=== PATIENT | female | born 1985 | race Two or more races ===

== ENCOUNTER 2022-11-17 00:36 | Day surgery (SDC) | payer OTHER, SELFPAY ==
[2022-11-10 14:19] VITALS: BMI 29.3
--- NOTE | 2022-11-10 14:52 | PC.NURSE ---
Report to the Outpatient Waiting Room, entrance under the green pavilion located off [facility], at time _0600 on date _11/17/22 . Planned Procedure Time: _0730 . Time changes happen often and if your time is changed the preop area will call you the afternoon before. - You and your visitor will be asked to self-screen and do not enter if you have any COVID symptoms. - A mask is optional within the hospital at this time. Patients may have clear liquids (water, carbonated beverages, clear teas, apple juice) until 3 hours prior to surgery with a maximum of 20 ounces. - No food from midnight until time of surgery - Infants may have breast milk until 4 hours before surgery, formula 6 hours prior to surgery. - Children will be allowed to drink immediately following surgery. If applicable, please bring a bottle or sippy cup to assist with drinking. Juice, water, soda, and popsicles are readily available. For infants on formula, please bring formula the day of surgery. Pacifiers are allowed. Take the following medications with a SIP of water the morning of surgery: _NONE DO NOT STOP ANY OF YOUR OTHER PRESCRIPTION MEDICATIONS PRIOR TO SURGERY ?EXCEPT THE FOLLOWING Medications to discontinue per physician NONE Date to take last dose___NONE Please no make-up, nail japanese, hairspray, perfume, deodorant, or body powder the day of surgery. No jewelry (including any body piercings) or valuables the day of surgery, leave them at home. Please take a shower or bath the night before, or the morning of, surgery with an antibacterial soap. Wear comfortable, loose fitting clothing. Children are encouraged to wear pajamas. - Jewelry must be removed prior to entering the operating room. Rings and piercings that are not removed may be cut off. - The hospital will not accept responsibility for valuables. - Please leave all valuables, including medications, at home the day of surgery. If you are going home after surgery, a licensed charter bus driver must drive you home. - NO public transportation without another adult if you receive anesthesia. - We recommend that an adult stay with you for 24 hours following discharge. - We also recommend that you do not drive, make important decision, drink alcoholic beverages, or take any drugs that were not prescribed by your health care provider for at least 24 hours after your discharge time. For Pediatric surgeries, we recommend two adults accompany the child home. Follow any additional instructions given to you from your surgeon. If you or anyone in your household have experienced Covid symptoms in the past week, please notify your surgeon or the nurse liaison at the phone number below for possible testing. Telephone instructions given to _SAM and asked if any additional questions and then verbalized understanding. Patient advised to call surgeon office or pre surgery nurse liaison [phone] if any additional questions.
--- NOTE | 2022-11-16 14:17 | P.PNAN_ITS ---
Anes - Initial Pre Proc Eval Procedure: Operation Date: 11/17/22 07:30 Proposed Procedures p Abdominoplasty with Liposuction - Junior Vaca MD Date/Time: 11/16/22 14:17 Surgeon: Junior Vaca MD Pre Op Diagnosis: skin laxity, localized adiposity Patient Data Age: 36 Gender: F Height: 1.65 m Weight: 80 kg Allergies Allergy/AdvReac Type Severity Reaction Status Date / Time adhesive AdvReac Intermediate Redness of Verified 11/10/22 14:58 Skin Home Medications Medication Instructions Recorded Confirmed Type No Home Medications 11/10/22 11/10/22 History Patient hx anesthesia problems: post op nausea/vomiting Family hx anesthesia problems: none Results Review: All pre-operative results and documents have been reviewed as part of the pre- operative evaluation. [facility] Past Medical History Medical History (Updated 11/16/22 @ 14:18 by Varun Kim DO) Factor V Leiden Pelvic adhesions PONV (postoperative nausea and vomiting) Surgical History Surgical History (Updated 11/16/22 @ 14:18 by Varun Kim DO) History of tubal ligation Social History Social History Smoking status: Never smoker Alcohol intake: never Substance use: never Substance use type: does not use Living arrangements: with family Spiritual care concerns: No Anes - Eval Final PreProcedure Day of Procedure 11/16/22 14:17 Patient weight: overweight Heart: regular rate and rhythm Lungs: clear to auscultation Airway: Mallampati scale class II Neurological: alert and oriented Last oral intake: >/= 8 hours ASA classification: II Emergent: no Anesthetic plan: proceed Anesthesia type and monitoring: general ETT and standard monitoring Results Review: All pre-operative results and documents have been reviewed as part of the pre- operative evaluation. Informed Consent: The patient's anesthetic plan and its attendant risks and benefits were discussed with the patient/family/POA. Questions were solicited and answers provided to the satisfaction of the patient/family/POA.
[2022-11-17] VITALS (11 sets, daily range): BP systolic 102–138; BP diastolic 59–80; PULSE 71–117; RESP 13–19; TEMP 36.7–37.6; O2SAT 98–100
[2022-11-17 06:50] LABS: Urine Cotinine NEGATIVE
--- NOTE | 2022-11-17 06:59 | WPDHPUPDATE1 ---
History and Physical Update Update Date/Time: 11/17/22 06:59 History and Physical has been reviewed, including an updated exam of the patient. There are NO changes in the patient's condition. Risks, benefits, and alternatives have been discussed and questions answered. Patient agrees to proceed with procedure.
--- NOTE | 2022-11-17 07:00 | W.PM.PROC2 ---
Procedure Note - Detailed Date of Procedure 11/17/22 Pre-op Diagnosis skin laxity, localized adiposity Post-op Diagnosis Same Procedure Performed Progressive tension abdominoplasty with suction lipectomy Surgeon Junior Vaca MD Anesthesia General Findings Tissue removed: 2492 grams Lipoaspirate: 3,000 cc Description of Procedure They are here today for abdominoplasty. Previously and again today the risks, benefits, alternatives were discussed in extensive detail. I wanted them to be very realistic about the risks involved as well as expectations. We discussed aftercare and what to monitor for. I was very upfront about the risks of wound breakdown leading to loss of skin, open wounds, and need for additional procedures with permanent abdominal deformity. We discussed DVT/PE risks and management. Made sure answered all of their questions to their satisfaction today and consent was obtained. They were marked in the preoperative holding area with their verification. The patient was taken to the operating room placed supine on the operating table. Anesthesia was provided by anesthesiology. A Mendoza catheter was started. They were prepped and draped in a standard sterile fashion. A surgical time-out was taken. I placed the patient in a flexed position to verify the upper and lower markings would reach. I then placed supine. A thorough abdominal examination was completed. Stab incisions were made and tumescent solution infiltrated. Once adequate time was allowed for hemostasis a 5mm basket cannula and 3mm canula was utilized to complete suction lipectomy based on S.A.F.E. technique in multiple planes and passes. There were turned to bilateral lateral decubitus position with care taken to protect them for injury during this process. Suction lipectomy continued to result based on pre-operative planning, intra-operative observation, and rolling pinch test which were in full agreement. A 10 blade was used to make the upper incision. I continued dissection down to the level of fascia. Elevated just what was necessary for repair of the diastasis. I then again flexed the bed to verify the upper skin flap would reach the lower markings without tension. Once verified I placed her supine once again and a 10 blade used to make the lower incision. I elevated up to level the umbilicus and left the umbilicus intact on a well-vascularized stalk. The intervening tissue was removed. A 2 mm blunt cannula with 0.5% bupivicaine was injected deep to the fascia bilaterally. I plicated the diastasis recti using 0 PDO stratafix barbed suture. This was in 2 separate layers using 2 separate sutures as well. I repaired around the umbilicus leaving plenty of room for well-vascularized stalk of the umbilicus with 2-0 PDS. I also repaired lateral to the rectus using two layers of 0 PDO stratafix. The patient was flexed and starting from superior to inferior began plication using 2-0 Vicryl to obliterate all space in a standard progressive tension fashion. At the umbilicus I marked out the location of the skin and inset this with 3-0 Monocryl and 4-0 Vicryl. I continued the remainder of the plication using 2-0 Vicryl until I reached my lower planned scar line. I trimmed any excess skin of the upper flap making sure this was a tension-free closure. I then approximated using a 3 point suture with 2-0 Vicryl followed by 3-0 stratafix ,running subcuticular 4-0 Monocryl, and tissue glue. Fluffs and an abdominal binder were placed. The patient was transferred to the bed in a flexed position. Awoken and taken to the PACU without difficulty. All instrument and sponge counts were correct at the end of the case. Estimated Blood Loss 75 Drains No Packing No Pathology None sent Complications No immediate complications Condition Stable Disposition PACU
[2022-11-17] MEDS: LACTATED RINGERS 1,000 ML 30 ML IV CONT ×2 (07:30→12:07)
[2022-11-17] MEDS: SCOPOLAMINE 1.5 MG PATCH TRANSDERM (07:30)
[2022-11-17] MEDS: TRANEXAMIC ACID 1,000MG/ISO100 1,000 MG/100 ML BAG 200 MG IVPB (07:30)
[2022-11-17] MEDS: ceFAZolin 2 GM/D5W 50 ML 2 GM/50 ML BAG IVPB (07:45)
[2022-11-17] MEDS: LACTATED RINGERS IRRIG 1,000 ML, LIDOCAINE HCL 1% LOCAL INJ 50 ML, EPINEPHrine HCL INJ ... INFILTRATE ×3 (08:19→09:47)
[2022-11-17] MEDS: BUPIVACAINE/EPINEPHRINE 0.5% 50 ML VIAL 60 ML INFILTRATE (08:20)
[2022-11-17] MEDS: fentaNYL CITRATE INJ (*CRX) 100 MCG/2 ML VIAL 25 MCG IV PUSH (12:51)
[2022-11-17] MEDS: LACTATED RINGERS 1,000 ML 125 ML IV CONT (13:35)
[2022-11-17] MEDS: carisoprodoL (*CRX) 350 MG TABLET PO ×2 (14:15→21:14)
[2022-11-17] MEDS: KETOROLAC 10 MG TABLET PO ×2 (14:32→21:14)
[2022-11-17] MEDS: MORPHINE SULFATE (*CRX) 2 MG/ML INJ IV PUSH (18:07)
[2022-11-17] MEDS: ENOXAPARIN 40 MG/0.4 ML SYRINGE SUB-Q (18:11)
[2022-11-17] MEDS: DOCUSATE SODIUM 100 MG CAPSULE PO (21:14)
--- NOTE | 2022-11-19 09:57 | PC.NURSE ---
Paper documentation exists on this patient due to [employer] System downtime on 11/18/22 from 0030 to 1900.
== END 2022-11-18 12:22 | disposition home or self-care (01) ==
LOC: ANHSURGERY 07:01 → ANHOB2 13:28 → ANHLDR 11-23 09:55
PROVIDERS: Visit Provider Surgery Plastic and Reconstructive Surgery
PROC: (CPT 15877; principal; 2022-11-17 07:30)
DX: Z41.1 Encounter for cosmetic surgery (principal); L57.4 Cutis laxa senilis; E65 Localized adiposity; D68.51 Activated protein C resistance
CPT/HCPCS: 15877; 15830; 15847; 80307; 99199; A9270; J0171; J0690; J1100; J1170; J1650; J2250; J2270; J2405; J2704; J3010; J7120